=== PATIENT | female | born 1995 | race American Indian/Alaskan Native ===

== ENCOUNTER → 2017-06-02 | Outpatient (CLI) | payer OTHER ==
[2017-06-02 15:23] LABS: Specimen Source URINE
[2017-06-03 15:23] LABS: Source Urine
== END | disposition home or self-care (01) ==
LOC: LAB UCHC 15:21
PROVIDERS: Physician Assistant
DX: Z30.42 Encounter for surveillance of injectable contraceptive (principal); Z11.3 Encounter for screening for infections with a predominantly sexual mode of transmission
CPT/HCPCS: 87491; 87591

== ENCOUNTER → 2017-09-03 | Outpatient (CLI) | payer OTHER | LOC: LAB SHORT 10:05 → LAB 10:05 | PROVIDERS: Registered Nurse Community Health | DX: Z12.4 Encounter for screening for malignant neoplasm of cervix (principal) | CPT/HCPCS: G0123 ==